=== PATIENT | female | born 1960 | race African-American/Black ===

== ENCOUNTER 2018-05-27 18:33 | Emergency (ER) | payer SELFPAY ==
[~2018-05-27] VITALS: Ht 162.6 cm; Wt 79.4 kg
[2018-05-27 18:40] VITALS: BP 158/101
[2018-05-27] MEDS ORDERED: BENZ100C PO (19:52)
--- NOTE | 2018-05-27 19:52 | PHYS DOC ---
Adult General Chief Complaint Chief Complaint: SORE THROAT HPI HPI Patient is a 57 year old AA female who presents to the ER with complaints of a sore throat, nasal congestion, and productive cough for the last 6 days. She denies any fever, nausea, vomiting, diarrhea, abdominal pain, or body aches. Pt denies having an annual influenza vaccination last fall. She rates her pain a 9/ 10 on the pain scale and states that nothing has helped to relieve her pain, the pain increases with swallowing. She also denies any shortness of breath or wheezing. (VIANCA MARIN APRN) Review of Systems Review of Systems Constitutional: Denies fever or chills [] Eyes: Denies drainage or eye pain HENT: see HPI Respiratory: Denies wheezing or shortness of breath; reports productive cough with clear to yellow sputum Cardiovascular: No additional information not addressed in HPI [] GI: Denies abdominal pain, nausea, vomiting, or diarrhea [] Musculoskeletal: Denies back pain or joint pain [] Integument: Denies rash or skin lesions [] Neurologic: Denies headache, (VIANCA MARIN APRN) Current Medications Current Medications Current Medications Medications (Trade) Dose Ordered Sig/Dm Start Time Stop Time Status Last Admin Dose Admin Dexamethasone Sodium Phosphate (Decadron) 10 mg 1X ONCE 05/27/18 20:00 05/27/18 20:01 DC 05/27/18 19:49 10 MG (DIANN HUNG MD) Allergies Allergies Allergies Coded Allergies Type Severity Reaction Last Updated Verified No Known Drug Allergies 05/27/18 No (DIANN HUNG MD) Physical Exam Physical Exam Constitutional: Well developed, well nourished, no acute distress, non-toxic appearance, obese. [] HENT: Normocephalic, atraumatic, bilateral external ears normal, bilateral TMs normal, erythema of posterior pharynx with 2+ tonsils bilat, no oral exudates, moist mucous membranes, nose congested Eyes: conjunctiva injected, no discharge. [] Neck: Normal range of motion, anterior chain tenderness, no lymphadenopathy, supple, no stridor. [] Cardiovascular:Heart rate regular rhythm, no murmur [] Lungs & Thorax: Bilateral breath sounds clear to auscultation [] Skin: Warm, dry, no erythema, no rash. [] Extremities: No cyanosis, no clubbing, ROM intact, Neurologic: Alert and oriented X 3, no focal deficits noted. [] Psychologic: Affect normal, judgement normal, mood normal. [] (VIANCA MARIN APRN) Current Patient Data Vital Signs Vital Signs Date Time Temp Pulse Resp B/P (MAP) Pulse Ox O2 Delivery O2 Flow Rate FiO2 05/27/18 18:40 98.3 101 18 158/101 (120) 98 Room Air 98.3 (DIANN HUNG MD) Lab Values Laboratory Tests Test 05/27/18 18:49 Group A Streptococcus Rapid Negative (NEGATIVE) Microbiology 05/27/18 Throat Culture - Final, Complete 05/27/18 - Final, Complete 05/27/18 - Final, Complete (DIANN HUNG MD) EKG EKG [] (VIANCA MARIN APRN) Radiology/Procedures Radiology/Procedures rapid strep negative [] (VIANCA MARIN APRN) Course & Med Decision Making Course & Med Decision Making Pertinent Labs and Imaging studies reviewed. (See chart for details) Dx: uri, pharyngitis Rapid strep was negative. Patient was given 10 mg of Decadron by mouth in the emergency department. Patient was encouraged take [id number] decongestant and antihistamine as needed for relief of congestion. Warm salt water gargles recommended. Follow-up with primary care doctor symptoms persist. Return to the ER symptoms worsen. Patient verbalized an understanding of home care, medications, follow-up, and return to ED instructions and was in agreement with the plan of care. [] (VIANCA MARIN APRN) Course & Med Decision Making Staff Physician Addendum: I was working in the ER during the course of this patient's visit. I was available for consultation as needed, but I was not directly involved in the care of this patient. (DIANN HUNG MD) Dragon Disclaimer Dragon Disclaimer This electronic medical record was generated, in whole or in part, using a voice recognition dictation system. (VIANCA MARIN APRN) Departure Departure Impression: Primary Impression: URI with cough and congestion Additional Impression: Pharyngitis, acute Disposition: 01 HOME, SELF-CARE Condition: STABLE Patient Instructions: Upper Respiratory Infection, Adult, [id number], Viral Pharyngitis Additional Instructions: Fill prescription(s) and use as directed. Recommend use of a Cool mist humidifier in room at bedtime. Alternate Tylenol or ibuprofen as needed for pain /fever. Increase clear fluids. Avoid airway triggers such as smoke, fragrance, dust, and pollen. Recommend use of [id number] decongestants and throat lozenges. Follow-up with your primary care doctor symptoms persist, return to the ER symptoms worsen. Scripts Benzonatate (TESSALON PERLE) 100 Mg Capsule 1 CAP PO TID PRN for PAIN for 7 Days, #21 CAP 0 Refills Prov: VIANCA MARIN APRN 05/27/18 Problem Qualifiers Additional Impression: Pharyngitis, acute Pharyngitis/tonsillitis etiology: unspecified etiology Qualified Codes: J02.9 - Acute pharyngitis, unspecified VIANCA MARIN APRN May 27, 2018 19:52 DIANN HUNG MD Jun 01, 2018 07:51
[2018-05-27] MEDS ORDERED: DEXAMETHASONE SOD PHOS 20 MG/5 ML VIAL. PO ONE (20:00)
== END 2018-05-27 19:56 | disposition home or self-care (01) ==
LOC: ER 18:33
DX: J02.9 Acute pharyngitis, unspecified (principal)
CPT/HCPCS: 87070; 87880; 99283; J1100

== ENCOUNTER 2018-05-31 01:19 | Emergency (ER) | payer SELFPAY ==
[~2018-05-31] VITALS: Ht 160 cm; Wt 79.4 kg
[~2018-05-31 01:19] MED LIST: BENZ100C PO
[2018-05-31] MEDS: LIDOCAINE 2% VISCOUS 15 ML SOLUTION. SWSW ONE (02:17)
[2018-05-31] MEDS: methylPREDNISolone SOD SUCC PF 125 MG/2 ML VIAL. IM ONE (02:17)
[2018-05-31 02:19] VITALS: BP 193/93
[2018-05-31] MEDS ORDERED: AMOX500C PO (03:01)
[2018-05-31] MEDS ORDERED: LIDO15SO2 MM (03:01)
--- NOTE | 2018-05-31 03:01 | PHYS DOC ---
Past Medical History Past Medical History: No Pertinent History Past Surgical History: Alcohol Use: Occasionally Drug Use: None Adult General Chief Complaint Chief Complaint: SORE THROAT HPI HPI Patient is a 57-year-old female who presents with complaint of sore throat for the last week. Patient states that she was seen here last Monday and states that her symptoms just aren't getting any better. She states that the sore throat is getting worse. She is not sure whether or not she is been running a fever. She denies any vomiting or diarrhea. She rates her pain to be a 10 out of 10. She states the pain is worsened with swallowing. Review of Systems Review of Systems Constitutional: Denies fever or chills [] HENT: Complains of sore throat [] Respiratory: Denies cough or shortness of breath [] Cardiovascular: No additional information not addressed in HPI [] GI: Denies abdominal pain, nausea, vomiting or diarrhea [] Integument: Denies rash or skin lesions [] Current Medications Current Medications Current Medications Medications (Trade) Dose Ordered Sig/Dm Start Time Stop Time Status Last Admin Dose Admin Amoxicillin (Amoxil) 500 mg 1X ONCE 05/31/18 03:30 05/31/18 03:30 DC Lidocaine HCl (Viscous Lidocaine) 15 ml 1X ONCE 05/31/18 02:00 05/31/18 02:01 DC 05/31/18 02:17 15 ML Methylprednisolone Sodium Succinate (SOLU-Medrol 125MG VIAL) 125 mg 1X ONCE 05/31/18 02:00 05/31/18 02:01 DC 05/31/18 02:17 125 MG Allergies Allergies Allergies Coded Allergies Type Severity Reaction Last Updated Verified No Known Drug Allergies 05/27/18 No Physical Exam Physical Exam Constitutional: Well developed, well nourished, no acute distress, non-toxic appearance. [] HENT: Normocephalic, atraumatic, bilateral tonsils are 3+ with erythema but no exudates. No uvular deviation and no trismus on exam. [] Eyes: PERRLA, EOMI, conjunctiva normal, no discharge. [] Neck: Normal range of motion, no tenderness, supple, with anterior cervical lymphadenopathy. [] Cardiovascular: Regular rate and rhythm[] Lungs & Thorax: Bilateral breath sounds clear to auscultation [] Skin: Warm, dry, no erythema, no rash. [] Current Patient Data Vital Signs Vital Signs Date Time Temp Pulse Resp B/P (MAP) Pulse Ox O2 Delivery O2 Flow Rate FiO2 05/31/18 02:19 100 20 193/93 (126) 98 Room Air 05/31/18 01:25 99.0 99.0 EKG EKG [] Radiology/Procedures Radiology/Procedures [] Course & Med Decision Making Course & Med Decision Making Pertinent Labs and Imaging studies reviewed. (See chart for details) [] Dragon Disclaimer Dragon Disclaimer This electronic medical record was generated, in whole or in part, using a voice recognition dictation system. Departure Departure Impression: Primary Impression: Tonsillitis Disposition: HOME, SELF-CARE Condition: STABLE Referrals: NO PCP (PCP) Patient Instructions: Tonsillitis Scripts Lidocaine HCl (Lidocaine HCl Viscous) 15 Ml Solution 5 ML MM Q2HR PRN for sore throat, #100 ML Gargle and spit every 2 hours as needed for sore throat Prov: WENDY NORWOOD Jr. DO 05/31/18 Amoxicillin (AMOXICILLIN) 500 Mg Capsule 1 CAP PO TID, #30 CAP Prov: WENDY NORWOOD Jr. DO 05/31/18 WENDY NORWOOD Jr. DO May 31, 2018 03:01
[2018-05-31] MEDS ORDERED: AMOXICILLIN 250 MG CAPSULE. PO ONE (03:30)
== END 2018-05-31 03:03 | disposition home or self-care (01) ==
LOC: ER 01:19
DX: J03.90 Acute tonsillitis, unspecified (principal); Z98.890 Other specified postprocedural states
CPT/HCPCS: 87070; 87880; 96372; 99283; J2930